=== PATIENT | female | born 1995 | race Caucasian/White ===

== ENCOUNTER 2023-12-22 09:13 | Outpatient (CLI) | payer MEDICAID, SELFPAY ==
[2023-12-22 17:59] LABS: Basophils # 0.1 K/mm3 (0-0.2); Basophils % 1.5 % (0.1-2.0); Eosinophils # 0.5 K/mm3 (0.0-0.4); Eosinophils % 6.8 % (0.1-12.0); Hematocrit 42.6 % (37.0-47.0); Hemoglobin 14.1 g/dL (12.2-16.2); Lymphocytes # 1.9 K/mm3 (0.7-4.5); Lymphocytes % 25.5 % (10-50); Mean Corpuscular Hemoglobin 29.2 pg (27.0-31.2); Mean Corpuscular Volume 88.5 fl (81-99); Monocytes # 0.4 K/mm3 (0.1-1.0); Neutrophils # 4.5 K/mm3 (1.8-7.8); Neutrophils % 61.2 % (37.0-80.0); Platelet Count 466 K/mm3 (142-424); Red Blood Count 4.82 M/mm3 (4.20-5.40); Red Cell Distribution Width 13.9 % (11.5-17.5); White Blood Count 7.4 K/mm3 (4.8-10.8)
[2023-12-22 18:06] LABS: Albumin Level 4.4 g/dl (3.5-5.0); Chloride 106 mmol/L (98-107); Potassium 4.6 mmoL/L (3.5-5.1); Sodium 137 mmol/L (136-145)
[2023-12-22 18:08] LABS: Blood Urea Nitrogen 5 mg/dl (7-17); Estimated Glomerular Filt Rate 99 ml/min (>60); GFR (African American) 120 ML/MIN (>60)
[2023-12-22 18:09] LABS: Alanine Aminotransferase 19 U/L (12-78); Albumin/Globulin Ratio 1.6 (1.1-1.8); Alkaline Phosphatase 96 U/L (38-126); Anion Gap 14.6 mEq/L (5-15); Aspartate Amino Transferase 24 U/L (14-36); Bilirubin,Total 0.5 mg/dl (0.2-1.3); Calcium 9.4 mg/dl (8.4-10.2); Carbon Dioxide 21 mmol/L (22.0-30.0); Cholesterol 158 mg/dl (140-200); Globulin 2.7 g/dL (1.3-3.2); Glucose 101 mg/dl (74-100); Iron 71 ug/dL (37-170); Total Protein,Serum 7.1 g/dl (6.3-8.2); Triglycerides 112 mg/dl (30-150); VLDL Cholesterol 22 mg/dL (0-40)
[2023-12-22 18:10] LABS: HDL Cholesterol 53 mg/dl (40-60)
[2023-12-22 18:19] LABS: Total Iron Binding Capacity 390 ug/dL (265-497)
[2023-12-22 18:21] LABS: Direct LDL Cholesterol 82.99 mg/dL (100-129)
[2023-12-22 18:26] LABS: 25-OH Vitamin D, Total 34.8 ng/mL (30-100)
[2023-12-22 18:30] LABS: Hemoglobin A1C 5.2 % (4.0-6.0)
[2023-12-22 18:41] LABS: Thyroid Stimulating Hormone 0.88 uIU/mL (0.465-4.68)
[2023-12-22 18:45] LABS: Ferritin 12.8 ng/ml (6.24-137)
[2023-12-22 21:48] LABS: HIV (1&2) Antibody Rapid NONREACTIVE (NONREACTIVE)
[2023-12-24 08:39] LABS: HCV Ab Non Reactive (Non Reactive)
== END 2023-12-22 23:59 | disposition home or self-care (01) ==
LOC: LAB.DROPOF 12-23 09:07
PROVIDERS: PCP Student in an Organized Health Care Education/Training Program; Visit Provider Student in an Organized Health Care Education/Training Program
DX: E61.1 Iron deficiency (principal); E55.9 Vitamin D deficiency, unspecified; E66.9 Obesity, unspecified; Z13.220 Encounter for screening for lipoid disorders; Z11.59 Encounter for screening for other viral diseases; Z91.89 Other specified personal risk factors, not elsewhere classified; Z11.4 Encounter for screening for human immunodeficiency virus [HIV]; F41.9 Anxiety disorder, unspecified; Z13.29 Encounter for screening for other suspected endocrine disorder; Z13.1 Encounter for screening for diabetes mellitus
CPT/HCPCS: 80050; 80053; 80061; 82306; 82728; 83036; 83540; 83550; 84443; 85025; 86803; 87389